=== PATIENT | female | born 1985 | race Caucasian/White ===

== ENCOUNTER 2018-08-28 19:37 | Emergency (ER) | payer MEDICAID ==
[~2018-08-28] VITALS: Ht 157.5 cm; Wt 60.8 kg
[2018-08-28 20:04] VITALS: Ht 157.5 cm; Wt 60.8 kg
[2018-08-28 21:45] VITALS: BP 140/81
== END 2018-08-28 21:45 | disposition home or self-care (01) ==
LOC: ED 19:37
DX: H10.89 Other conjunctivitis (principal); J02.9 Acute pharyngitis, unspecified
CPT/HCPCS: J0696; J1885

== ENCOUNTER 2019-03-12 20:52 | Emergency (ER) | payer MEDICAID ==
[~2019-03-12] VITALS: Ht 160 cm; Wt 62.1 kg
[2019-03-12 20:59] VITALS: Ht 160 cm; Wt 62.1 kg
[2019-03-12 22:45] LABS: UA SPECIFIC GRAVITY <=1.005 (1.005-1.035); microscopic required? YES; urine erythrocyte TRACE (NEGATIVE)
[2019-03-12 23:11] LABS: BASOPHIL % 0.7 % (0-2); PLATELET COUNT 232 x10^3mcL (130-400); RED CELL DISTRIBUTION WIDTH 13.5 % (11.5-14.5)
[2019-03-13 00:14] VITALS: BP 110/70
== END 2019-03-13 00:14 | disposition home or self-care (01) ==
LOC: ED 20:52
PROVIDERS: Emergency Medicine
DX: O20.0 Threatened abortion (principal); Z3A.01 Less than 8 weeks gestation of pregnancy
CPT/HCPCS: 36415; Q0162

== ENCOUNTER 2019-07-05 20:48 | Emergency (ER) | payer MEDICAID ==
[~2019-07-05] VITALS: Ht 170.2 cm; Wt 61.7 kg
[2019-07-05 20:49] VITALS: Ht 170.2 cm; Wt 61.7 kg
[2019-07-05 21:13] LABS: BASOPHIL % 0.5 % (0-2); PLATELET COUNT 225 x10^3mcL (130-400); RED CELL DISTRIBUTION WIDTH 13.6 % (11.5-14.5)
[2019-07-05 22:15] VITALS: BP 105/61
== END 2019-07-05 22:15 | disposition home or self-care (01) ==
LOC: ED 20:48
PROVIDERS: Emergency Medicine
DX: O99.512 Diseases of the respiratory system complicating pregnancy, second trimester (principal); J06.9 Acute upper respiratory infection, unspecified; Z3A.20 20 weeks gestation of pregnancy
CPT/HCPCS: 36415; Q0092